=== PATIENT | male | born 1995 | race Caucasian/White ===

== ENCOUNTER → 2020-03-30 17:45 | Outpatient (CLI) | payer MEDICAID, SELFPAY ==
[2020-03-30 18:28] LABS: C-Reactive Protein 2.4 mg/L (0-4); Erythrocyte Sedimentation Rate 5 mm/hr (0-15)
== END ==
PROVIDERS: Visit Provider Family Medicine
DX: R52 Pain, unspecified (principal); H92.01 Otalgia, right ear; R51.9 Headache, unspecified; G89.29 Other chronic pain
CPT/HCPCS: 85651; 86140